=== PATIENT | male | born 1995 | race Caucasian/White ===

== ENCOUNTER 2020-02-05 22:43 | Emergency (ER) | payer BC ==
--- NOTE | 2020-02-05 22:50 | PHYS DOC ---
General Adult HPI: HPI: '" I really mangled up this finger.. I was drilling a stainless steel plate for liner roll changer.. on my Jeep. .. ".. The plate spun and tore into my Lt hand.. " Patient is a 24 year old male who presents with above hx and complaints of injury to Lt. hand. Patient has 4 cm laceration to left palm, multiple smaller 1 cm lacerations to left index finger and one larger flap laceration to left index approximately 2 x 2 x 2 cm. Does have distal sensation and movement. Laceration goes to the the bone on the medial side of the index finger. Patient had cleaned laceration prior to arrival. Patient does not remember his last tetanus shot. Patient is right-hand dominant. 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 Patient denies any fever or chills. Patient denies any recent travel outside the [place] area. No history of immunosuppression. Review of Systems: Review of Systems: Constitutional: Denies fever or chills Eyes: Denies change in visual acuity HENT: Denies nasal congestion or sore throat Respiratory: Denies cough or shortness of breath Cardiovascular: Denies chest pain or edema GI: Denies abdominal pain, nausea, vomiting, bloody stools or diarrhea : Denies dysuria Musculoskeletal: Denies back pain or joint pain Integument: Denies rash. Complains of left index finger and palm laceration Neurologic: Denies headache, focal weakness or sensory changes Endocrine: Denies polyuria or polydipsia Lymphatic: Denies swollen glands Psychiatric: Denies depression or anxiety Heart Score: Risk Factors: Risk Factors: DM, Current or recent (<one month) smoker, HTN, HLP, family history of CAD, obesity. Risk Scores: Score 0 - 3: 2.5% MACE over next 6 weeks - Discharge Home Score 4 - 6: 20.3% MACE over next 6 weeks - Admit for Clinical Observation Score 7 - 10: 72.7% MACE over next 6 weeks - Early Invasive Strategies Family History: Family History: Noncontributory Current Medications: Current Meds: Denies of her home meds Allergies: Allergies: No known drug allergies Physical Exam: PE: Constitutional: Well developed, well nourished, moderate acute distress, non- toxic appearance. [] HENT: Normocephalic, atraumatic, bilateral external ears normal, oropharynx moist, no oral exudates, nose normal. [] Eyes: PERRLA, EOMI, conjunctiva normal, no discharge. [] Neck: Normal range of motion, no tenderness, supple, no stridor. [] Cardiovascular:Heart rate regular rhythm, no murmur [] Lungs & Thorax: Bilateral breath sounds equal apex on auscultation [] Abdomen: Bowel sounds normal, soft, no tenderness, no masses, no pulsatile masses. [] Skin: Warm, dry, no erythema, no rash. [] Back: No tenderness, no CVA tenderness. [] Extremities: No tenderness, no cyanosis, no clubbing, ROM intact, no edema. [] Except findings in left hand as per HPI Neurologic: Alert and oriented X 3, normal motor function, normal sensory function, no focal deficits noted. [] Psychologic: Affect anxious, judgement normal, mood normal. [] EKG: EKG: [] Radiology/Procedures: Radiology/Procedures: [][place] [address] IMAGING REPORT Signed PATIENT: BRITTA DOLAN ACCOUNT: [id number] : 1995 LOCATION: ER AGE: 24 SEX: M EXAM STATUS: REG ER ORD. PHYSICIAN: HARJINDER GRECO MD REASON: injury PROCEDURE: HAND LEFT 3V EXAM: HAND LEFT 3V 02/05/2020 10:50 PM CLINICAL INDICATION:Injury COMPARISON:None TECHNIQUE:3 views of the left hand FINDINGS:No acute fracture. Alignment is normal. Joint spaces are maintained. Soft tissue swelling and irregularity of the second finger is noted. There is no radiopaque foreign body. IMPRESSION:Soft tissue injury and swelling of the second finger. No radiopaque foreign body or acute fracture. Electronically signed by: Claire Casillas MD (02/06/2020 12:11 AM) [id number] DICTATED AND SIGNED BY: CLAIRE CASILLAS MD DATE: 02/06/20 0011 CC: HARJINDER GRECO MD; PCP,NO ~ Course & Med Decision Making: Course & Med Decision Making Pertinent Labs and Imaging studies reviewed. (See chart for details) Procedure note-laceration repair-irrigated with normal saline. Application of Betadine. Injected digit lacerations-flap laceration 2 x 2 x 2 cm and 2 smaller 1 cm lacerations with 2% lidocaine. Injected 4 cm palm laceration 2% lidocaine. Did do a digital block of left index finger. We cleaned wound. Irrigated wound with 3 cc of normal saline under pressure and range of motion. Closed pulmonary laceration and fingers use of 4-0 Prolene. 10 sutures . Dressing applied. Patient keep wound clean and dry. May leave current dressing in place for 3 days unless it becomes wet or soiled. Dressing last night removed immediately. Patient may use peroxide for cleaning if needed. Patient apply Polysporin 4 times a day to the laceration site until completely healed. Remove sutures in 10 days. Monitor closely for infection. Take Bactrim DS twice a day. Patient's tetanus is updated. Patient index finger was yonathan taped to third finger. Patient denies injury at high risk for poor outcome must be followed closely. Impression: 1. Multiple lacerations left hand-primary left index finger [] Dragbridgette Disclaimer: Jordan Disclaimer: This electronic medical record was generated, in whole or in part, using a voice recognition dictation system. Departure Departure: Disposition: 01 HOME/RESIDENCE PRIOR TO ADM Condition: STABLE Referrals: PCP,NO (PCP) Scripts Hydrocodone/Ibuprofen (HYDROCODONE-IBUPROFEN 7.5-200 ) 1 Each Tablet 1 TAB PO PRN Q6HRS PRN for PAIN, #30 TAB 0 Refills Prov: HARJINDER GRECO MD 02/05/20 Sulfamethoxazole/Trimethoprim (BACTRIM DS TABLET) 1 Each Tablet 1 TAB PO BID for laceration for 10 Days, #20 TAB 0 Refills Prov: HARJINDER GRECO MD 02/05/20 Jordan Disclaimer This chart was dictated in whole or in part using Voice Recognition software in a busy, high-work load, and often noisy Emergency Department environment. It may contain unintended and wholly unrecognized errors or omissions. HARJINDER GRECO MD Feb 05, 2020 22:50
[2020-02-05] MEDS ORDERED: BACITRACIN ZINC TOPICAL OINT PACKET. TP ONE (23:00)
[2020-02-05] MEDS ORDERED: HYDROcodon/IBUPROFEN 7.5/200MG 1 TAB TABLET PO ONE (23:00)
[2020-02-05] MEDS ORDERED: LIDOCAINE 2% 20 ML VIAL. IJ ONE (23:00)
[2020-02-05] MEDS ORDERED: DIPH,PERTUSS(ACELL),TET VAC/PF 0.5 ML SYRINGE. VAX IM ONE ×2 (23:06→23:45)
[2020-02-05] MEDS ORDERED: SULF1TAB24 PO (23:51)
[2020-02-05] MEDS ORDERED: HYDR-1179 PO (23:52)
[2020-02-06] MEDS ORDERED: SMZ/TMP 800/160MG TABLET. PO ONE
[2020-02-06 00:13] VITALS: BP 130/77
--- NOTE | 2020-02-06 00:14 | RAD ---
EXAM: HAND LEFT 3V 02/05/2020 10:50 PM CLINICAL INDICATION:Injury COMPARISON:None TECHNIQUE:3 views of the left hand FINDINGS:No acute fracture. Alignment is normal. Joint spaces are maintained. Soft tissue swelling and irregularity of the second finger is noted. There is no radiopaque foreign body. IMPRESSION:Soft tissue injury and swelling of the second finger. No radiopaque foreign body or acute fracture. Electronically signed by: Claire Casillas MD (02/06/2020 12:11 AM) [id number]
== END 2020-02-06 00:14 | disposition home or self-care (01) ==
LOC: ER 22:43
DX: S61.211A Laceration without foreign body of left index finger without damage to nail, initial encounter (principal); W26.8XXA Contact with other sharp object(s), not elsewhere classified, initial encounter; Y93.89 Activity, other specified; Y92.89 Other specified places as the place of occurrence of the external cause; Y99.8 Other external cause status
CPT/HCPCS: 12002; 73130; 90471; 90715; 99283; J2001